=== PATIENT | male | born 1970 | race Two or more races ===

== ENCOUNTER 2020-08-31 12:20 | Outpatient (CLI) | payer MEDICAID ==
[~2020-08-31] VITALS: Ht 175.3 cm; Wt 72.6 kg
[2020-08-31 14:07] VITALS: BP 108/68
[2020-09-01] MEDS ORDERED: PROTONIX40 MG ORAL (10:36)
[2020-09-01] MEDS ORDERED: ELIQUIS5 MG ORAL (10:36)
[2020-09-01] MEDS ORDERED: LOSARTAN POTASS50 MG ORAL (10:36)
[2020-09-01] MEDS ORDERED: PAXIL20 MG ORAL (10:36)
== END 2020-08-31 15:16 | disposition home or self-care (01) ==
LOC: PAN 12:20
DX: K85.20 Alcohol induced acute pancreatitis without necrosis or infection (principal)
CPT/HCPCS: 99203